=== PATIENT | female | born 1965 | race Caucasian/White ===

== ENCOUNTER 2019-01-26 06:02 | Day surgery (SDC) | payer OTHER ==
--- NOTE | 2019-01-24 15:10 | HP ---
DATE OF SURGERY: 01/26/2019 ANTICIPATED PROCEDURES: 1) EGD. 2) Colonoscopy. HISTORY OF PRESENT ILLNESS: The patient has had epigastric pain and reflux. She had a colonoscopy over seven years ago. She presents for both upper and lower endoscopic examination. PAST MEDICAL HISTORY: ALLERGIES: ALBUTEROL. LATEX. MEDICATIONS: See list. PAST SURGICAL HISTORY: Hysterectomy. Lung biopsy. Knee surgery. SOCIAL HISTORY: One pack per day. ETOH negative. FAMILY HISTORY: Negative. PHYSICAL EXAMINATION: VITAL SIGNS: Normal. CHEST: Clear. COR: Regular. IMPRESSION: The patient has a known duodenal diverticulum. She has some upper GI symptoms. She is due for colonoscopy. PLAN: She presents for EGD and colonoscopy.
[~2019-01-26 06:02] MED LIST: Lactated Ringers 1,000 ML IV SCH
[2019-01-26] MEDS ORDERED: DIPRIVAN 200 MG/20 ML IV ONE ×3 (08:38→09:03)
[2019-01-26] MEDS ORDERED: Ketamine HCl 50 MG/ML ONE (08:38)
[2019-01-26 10:23] VITALS: O2SAT 97
[2019-01-26 10:32] VITALS: BP 136/84; PULSE 72
--- NOTE | 2019-01-26 13:56 | OP ---
SURGERY DATE/TIME: 01/26/2019 0839 PREOPERATIVE DIAGNOSES: 1) Epigastric pain and symptoms of reflux. 2) Screening colonoscopy greater than seven years. POSTOPERATIVE DIAGNOSES: 1) Epigastric pain and symptoms of reflux. 2) Screening colonoscopy greater than seven years. 3) Additional findings grade 1/3 gastroesophageal reflux disease. PROCEDURES: 1) EGD with hot polypectomy x1. 2) Colonoscopy complete to cecum with hot polypectomy x1. SURGEON: Elijah Neal M.D. ANESTHESIA: MAC. COMPLICATIONS: None. CONDITION: Stable. INDICATION: The patient has epigastric pain. She did have ultrasound of the gallbladder that was negative. She had HIDA scan today and do not have the report. Today, she actually has a fairly normal upper exam. DESCRIPTION OF PROCEDURE: Pharynoesophageal junction normal. Esophagus normal. There is grade 1/3 gastroesophageal reflux disease. There is no hiatal hernia. Fundus, body and antrum normal. Pylorus normal. Duodenal bulb normal. Second portion normal. The scope was withdrawn looped upon itself. An 8 mm gastric polyp 1 inch below the gastroesophageal junction was present and this was taken with hot biopsy forceps to extinction and then withdrawn. Anal digital examination satisfactory. Scope advanced to the cecum. Base of cecum, ileocecal valve and appendiceal orifice normal. Coming back 3 inches there was an 8 mm polyp taken with hot biopsy forceps to extinction. Scope circumferentially withdrawn. No additional mucosal lesions noted. IMPRESSION: 1) Successful gastric polypectomy. 2) Successful colon polypectomy. PLAN: Follow up colon in three years. Follow up of stomach in three years.
== END 2019-01-26 10:15 | disposition home or self-care (01) ==
LOC: SDC 06:02
PROVIDERS: ATTEND Surgery
DX: Z12.11 Encounter for screening for malignant neoplasm of colon (principal); D12.2 Benign neoplasm of ascending colon; K31.7 Polyp of stomach and duodenum; R10.13 Epigastric pain; K21.9 Gastro-esophageal reflux disease without esophagitis; K57.10 Diverticulosis of small intestine without perforation or abscess without bleeding
CPT/HCPCS: 88305; J2704

== ENCOUNTER 2019-03-09 08:51 | Day surgery (SDC) | payer OTHER ==
--- NOTE | 2019-03-09 08:07 | HP ---
DATE OF SURGERY: 03/09/2019 ADMISSION DIAGNOSIS: Gallbladder dyskinesia. ANTICIPATED PROCEDURE: Laparoscopic cholecystectomy. HISTORY OF PRESENT ILLNESS: The patient has gallbladder dyskinesia and presents for surgery. PAST MEDICAL HISTORY: ALLERGIES: LATEX. ALBUTEROL. MEDICATIONS: See list. PAST SURGICAL HISTORY: Hysterectomy. Lung biopsy. SOCIAL HISTORY: Positive tobacco. Negative ETOH. FAMILY HISTORY: Negative. PHYSICAL EXAMINATION: VITAL SIGNS: Normal. CHEST: Clear. COR: Regular. ABDOMEN: Satisfactory. IMPRESSION: Gallbladder dyskinesia. PLAN: Laparoscopic cholecystectomy.
[~2019-03-09 08:51] MED LIST changes: +Lactated Ringers 1,000 ML IV ONE; +MEFOXIN 2 GM PREMIX** 2 GM/50 ML ML IV SCH; +Sensorcaine 0.25% 10 ML ONE
[2019-03-09] MEDS ORDERED: Lactated Ringers 1,000 ML IV ONE (08:58)
[2019-03-09] MEDS ORDERED: MEFOXIN 2 GM PREMIX** 2 GM/50 ML ML IV ONE (08:58)
[2019-03-09] MEDS ORDERED: Versed 2 MG/2 ML Injection IV PRN (09:38)
[2019-03-09] MEDS ORDERED: SUBLIMAZE 250 MCG/5 ML ONE (11:55)
[2019-03-09] MEDS ORDERED: DIPRIVAN 200 MG/20 ML IV ONE (11:55)
[2019-03-09] MEDS ORDERED: Zemuron 100 MG/10 ML ONE (11:55)
[2019-03-09] MEDS ORDERED: Versed 2 MG/2 ML Injection ONE (11:55)
[2019-03-09] MEDS ORDERED: Zofran 4 MG/2 ML VIAL ONE (12:25)
[2019-03-09] MEDS ORDERED: Zofran 4 MG/2 ML VIAL IV PRN (12:25)
[2019-03-09] MEDS ORDERED: BREVIBLOC 100 MG/10 ML IV ONE (13:25)
[2019-03-09] MEDS ORDERED: SUBLIMAZE 100 MCG/2 ML ONE ×2 (13:30→14:10)
[2019-03-09] MEDS ORDERED: TORAdol 30 mg Injection ONE (13:33)
[2019-03-09] MEDS ORDERED: BRIDION 200MG/2ML IV ONE (13:33)
[2019-03-09 15:28] VITALS: BP 142/64; PULSE 79; O2SAT 93
--- NOTE | 2019-03-10 07:47 | OP ---
SURGERY DATE/TIME: 03/09/2019 1256 PREOPERATIVE DIAGNOSIS: Cholecystitis. POSTOPERATIVE DIAGNOSIS: Cholecystitis. PROCEDURE: Laparoscopic cholecystectomy. SURGEON: Dr. Neal. ANESTHESIA: General. COMPLICATIONS: None. CONDITION: Stable. INDICATIONS: A patient with upper abdominal pain, ultrasound negative, HIDA scan positive. Seen and examined. Procedure discussed in detail and wished to proceed. DESCRIPTION OF PROCEDURE AND FINDINGS: Taken to surgery. General anesthetic, routine prep and drape. Right upper quadrant Veress needle. Four - 5 holes. Good visualization. Cystic duct defined. Cystic artery defined. Triply clipped and transected. Clips noted across and well approximated. Gallbladder rolled out of gallbladder fossa. The gallbladder delivered through upper abdominal port with scant widening. The field was clean. CO2 exsufflated. Skin closed with 4-0 Vicryl and Steri-Strips. The patient tolerated the procedure satisfactorily.
== END 2019-03-09 15:45 | disposition home or self-care (01) ==
LOC: SDC 08:51
PROVIDERS: ATTEND Surgery
DX: K81.9 Cholecystitis, unspecified (principal)
CPT/HCPCS: 88304; J0694; J1885; J2250; J2405; J2704; J3010

== ENCOUNTER 2021-02-17 20:27 | Emergency (ER) | payer BC ==
[2021-02-17] MEDS ORDERED: Sodium Chloride 0.9% 1000 ML 1,000 ML IV SCH (20:45)
[2021-02-17] MEDS ORDERED: Ativan 2 MG/1 ML VIAL ONE (20:54)
[2021-02-17 20:56] LABS: Absolute Neutrophil Ct (ANC) 9.27 (1.4-6.9); BASOPHIL % 0.4 % (0.0-0.4); Basophil (Absolute #) 0.06 (0-0.4); Eosinophil % 2.6 % (0.00-5.0); Eosinophil (Absolute #) 0.39 (0-0.5); Hematocrit 42.5 % (35-47); Hemoglobin 13.7 gm/dl (12.0-16.0); Lymphocyte (Absolute #) 4.44 (1.0-4.6); Lymphocytes % 29.3 % (24.0-44.0); Mean Corpuscular Hgb Concent. 32.2 g/dl (32-36); Mean Platelet Volume 9.7 fl (7.5-11.0); Monocyte (Absolute #) 0.98 (0.0-1.3); Monocytes % 6.5 % (0.0-12.0); Neutrophil % 61.2 % (36.0-66.0); Platelet Count 291 K/mm3 (150-450); Red Blood Count 4.57 M/mm3 (4.1-5.4); Red Cell Distribution Width 12.6 % (11.5-14.0); White Blood Count 15.1 K/mm3 (4.0-10.5)
[2021-02-17 21:08] LABS: ALBUMIN 4.2 g/dL (3.5-5.0); ALKALINE PHOSPHATASE 96 U/L (38-126); ANION GAP 14.4 MEQ/L (5-15); BLOOD UREA NITROGEN 9 mg/dL (7-17); CHLORIDE 103 mmol/L (98-107); Calcium 9.1 mg/dL (8.4-10.2); Carbon Dioxide 26 mmol/L (22-30); Creatinine 1 0.73 mg/dL (0.52-1.04); EST GLOMERULAR FILTRATION RATE > 60.0 ML/MIN; Glucose 119 mg/dL (74-106); Potassium 3.8 mmol/L (3.5-5.1); SGOT/AST 37 U/L (14-36); SGPT/ALT 60 U/L (0-35); SODIUM 140 mmol/L (137-145); Total Protein 6.8 g/dL (6.3-8.2)
[2021-02-17] MEDS ORDERED: Ativan 2 MG/1 ML VIAL IV ONE (21:25)
[2021-02-17] MEDS ORDERED: Sodium Chloride 0.9% 1000 ML 1,000 ML ONE (21:41)
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
[2021-02-18 00:17] VITALS: BP 123/77; PULSE 82
[2021-02-18 02:22] VITALS: O2SAT 93
--- NOTE | 2021-02-18 08:45 | XRAY ---
Indication: Seizure. Multiple contiguous axial images obtained through the head without contrast. Comparison: May 29, 2013. Normal appearing brain parenchyma, ventricles, and bony calvarium for patient's age. Visualized paranasal sinuses and mastoid air cells are clear. Impression: Continued normal CT head without contrast exam.
== END 2021-02-18 00:53 | disposition home or self-care (01) ==
LOC: ED 20:27
DX: G40.909 Epilepsy, unspecified, not intractable, without status epilepticus (principal); Z79.899 Other long term (current) drug therapy
CPT/HCPCS: 36000; 36415; 70450; 80053; 85025; 93005; 93041; 94760; 96374; U0003; 99285; J2060

== ENCOUNTER 2021-11-05 12:11 | Emergency (ER) | payer BC ==
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
[2021-11-05 13:06] VITALS: BP 112/76; PULSE 73; O2SAT 98
--- NOTE | 2021-11-05 13:14 | XRAY ---
Indication: Right knee pain and lump. Two-dimensional sonogram and color Doppler imaging of the major venous vessels of the right leg performed. Comparison: None No thrombus seen in the examined deep venous vessels of the right leg including greater saphenous vein. Veins demonstrate normal compressibility. Venous waveforms are normal with and without augmentation. Posterior knee demonstrates a 7.4 x 2.7 x 4.6 cm Michelle's cyst with low level internal echogenicity/septations. Impression: 1. Right leg negative for DVT. 2. Incidental complex Michelle's cyst.
== END 2021-11-05 13:07 | disposition home or self-care (01) ==
LOC: ED 12:11
DX: M71.21 Synovial cyst of popliteal space [Baker], right knee (principal); M25.561 Pain in right knee; Z72.0 Tobacco use; Z79.899 Other long term (current) drug therapy
CPT/HCPCS: 93971; 99282